=== PATIENT | female | born 1990 | race African-American/Black ===

== ENCOUNTER 2018-11-12 22:09 | Emergency (ER) | payer MEDICARE, MEDICAID ==
[~2018-11-12] VITALS: Ht 170.2 cm; Wt 65.9 kg
[2018-11-12 22:22] VITALS: TEMP 97.6
[2018-11-12 22:47] LABS: BASO % 0.4 % (0.0-2.0); EOS % 0.7 % (0-4.0); GRAN # 2.2 (1.4-6.5); GRAN % 41.7 % (42.2-75.2); LYMPH # 2.5 (1.2-3.4); LYMPH % 47.1 % (20.0-51.0); MEAN CELL VOLUME 96 fl (80.0-100.0); MEAN CORPUSCULAR HEMOGLOBIN 34 pg (27.0-31.0); MEAN CORPUSCULAR HGB CONC 35 g/dl (33.0-37.0); MEAN PLATELET VOLUME 9.3 fl (7.4-10.4); MONO # 0.5 (0.1-0.6); MONO % 9.9 % (1.7-9.3); PLATELET COUNT 180 K/mm3 (130-400); RED BLOOD COUNT 4.48 M/mm3 (4.10-5.30); REDCELL DISTRIBUTION WIDTH-CV 13.5 % (11.5-14.5)
[2018-11-12] MEDS ORDERED: TOPROL XL100 MG PO (22:52)
[2018-11-12] MEDS ORDERED: LIBRIUM 25M25 MG/CAP PO (22:53)
[2018-11-12] MEDS ORDERED: NEURONTIN300 MG/CAP PO (22:53)
[2018-11-12] MEDS ORDERED: PRILOSEC 20MG20 MG PO (22:54)
[2018-11-12] MEDS ORDERED: LITHIUM 30300 MG/CAP PO (22:54)
[2018-11-12] MEDS ORDERED: REMERON 15M15 MG/TA1 PO (22:56)
[2018-11-12] MEDS ORDERED: LIDOCAINE HC20 MG/M2 TOP (22:57)
[2018-11-12 23:00] LABS: ACETAMINOPHEN < 10 ug/mL (10-30); ALANINE AMINOTRANSFERASE 28 U/L (9-52); ALBUMIN 4.5 gm/dL (3.5-5.0); ALCOHOL(ethanol),MEDICAL 187 mg/dL; ALKALINE PHOSPHATASE 92 U/L (50-136); ANION GAP 8 mmol/L (7-16); AST,SGOT 47 U/L (15-37); BILIRUBIN,TOTAL 2.5 mg/dL (0.0-1.0); BLOOD UREA NITROGEN 12 mg/dL (7-17); CALCIUM 9.3 mg/dL (8.4-10.2); CARBON DIOXIDE 28 mmol/L (22-30); CHLORIDE 104 mmol/L (98-107); CREATININE, serum 0.74 (0.52-1.25); GLUCOSE 87 mg/dL (74-106); SALICYLATE < 1.0 mg/dL; SODIUM 140 mmol/L (137-145)
[2018-11-12 23:15] LABS: COLLECTION METHOD CLEAN CATCH
[2018-11-12 23:21] LABS: PH 7 (5-8); SQUAMOUS EPITHELIAL 0-2 /hpf; URINE APPEARANCE Clear; URINE BACTERIA Rare /hpf; URINE BILIRUBIN Negative (NEGATIVE); URINE BLOOD 1+ (NEGATIVE); URINE COLOR Yellow; URINE GLUCOSE Negative (NEGATIVE); URINE KETONE Negative (NEGATIVE); URINE LEUKOCYTE ESTERASE Negative (NEGATIVE); URINE NITRATE Negative (NEGATIVE); URINE PROTEIN(semi-quant) Negative (NEGATIVE); URINE RBC 0-2 /hpf; URINE UROBILINOGEN Negative (NEGATIVE)
[2018-11-12 23:45] LABS: TRICYCLIC ANTIDEPRESS URINE NEGATIVE
[2018-11-12] MEDS ORDERED: ZOFRAN ODT4 MG SL (23:51)
[2018-11-13 00:14] VITALS: BP 104/67; PULSE 87
== END 2018-11-13 00:22 | disposition home or self-care (01) ==
LOC: COL.ER 22:09
PROVIDERS: Emergency Medicine
DX: F10.20 Alcohol dependence, uncomplicated (principal); F31.9 Bipolar disorder, unspecified; G35 Multiple sclerosis; F17.210 Nicotine dependence, cigarettes, uncomplicated
CPT/HCPCS: J2060; J2405; J7030